=== PATIENT | male | born 1960 | race Caucasian/White ===

== ENCOUNTER 2023-12-31 12:50 | Emergency (ER) | payer OTHER ==
[~2023-12-31] VITALS: Ht 182.9 cm; Wt 85.0 kg
[2023-12-31 12:59] VITALS: O2SAT 99
[2023-12-31] MEDS ORDERED: BACITRACIN ZINC OINT UDPKT TOP ONE (13:15)
[2023-12-31] MEDS ORDERED: HYDROCODONE/ACETAMINOPHEN 5/325MG TABLET PO ONE (13:15)
[2023-12-31] MEDS ORDERED: TETANUS, DIPHTHERIA, PERTUSSIS VAC/PF 0.5ML (>10YR OLD) IM ONE (13:15)
[2023-12-31] MEDS ORDERED: LIDOCAINE HCL/EPINEPHRINE 1%-EPI 1:100,000 20 ML VIAL INFIL ONE (13:15)
[2023-12-31] MEDS ORDERED: AMOXICILLIN/POTASSIUM CLAVULANATE 875/125MG TAB PO ONE (13:45)
[2023-12-31] MEDS ORDERED: AMOXICILLIN/POTASSIUM CLAVULANATE 875/125MG TAB PO NR (14:30)
[2023-12-31] MEDS ORDERED: ONDANSETRON HCL 4MG/2ML INJ IM ONE (15:30)
[2023-12-31] MEDS ORDERED: IBUP-2029 PO (16:03)
[2023-12-31] MEDS ORDERED: AMOX1TAB16 MT (16:03)
[2023-12-31 16:14] VITALS: BP 132/85; PULSE 90; RESP 16; TEMP 98.7
== END 2023-12-31 16:25 | disposition home or self-care (01) ==
LOC: ER 13:07
DX: S51.812A Laceration without foreign body of left forearm, initial encounter (principal); W54.0XXA Bitten by dog, initial encounter; Y93.89 Activity, other specified; Y92.89 Other specified places as the place of occurrence of the external cause; Y99.8 Other external cause status
CPT/HCPCS: 73090; 90715; 90471; 96372; 99284; J3490; J2405; Z7610 ×2